=== PATIENT | male | born 1960 | race Asian ===

== ENCOUNTER → 2016-11-05 | Outpatient (CLI) | payer BC ==
[~2016-11-05] MED LIST: ASPI325T39 PO; [UNRECOGNIZED DRUG - REMARK] PO
--- NOTE | 2016-11-05 11:18 | DIAGNOSTIC IMAGING REPORT ---
ULTRASOUND LEFT GROIN NONVASCULAR CLINICAL HISTORY: Left groin pain. COMPARISON STUDY: No priors FINDINGS: Real-time grayscale sonography of the left groin is performed to assess for inguinal hernia. There is no sonographic evidence of left inguinal hernia. No hernia could be elicited by having the patient perform the Valsalva maneuver. No mass lesion or adenopathy is identified. IMPRESSION: There is no sonographic evidence of left inguinal hernia as clinically queried. Electronically signed by: Kosta Rodriguez M.D. 11/05/2016 11:16 AM Dictated Date/Time: 11/05/2016 11:15 AM
== END | disposition home or self-care (01) ==
LOC: C.ULTR 10:51
PROVIDERS: ATTEND Nurse Practitioner
DX: R10.30 Lower abdominal pain, unspecified (principal)

== ENCOUNTER → 2016-12-08 | Outpatient (CLI) | payer BC ==
--- NOTE | 2016-12-08 12:02 | DIAGNOSTIC IMAGING REPORT ---
ABDOMEN COMPLETE (US) CLINICAL HISTORY: 56 years-old Male with NAUSEA,GERD. TECHNIQUE: Multiple real time sonographic images of the abdomen were obtained assessing haney-scale appearance. COMPARISON: Abdominal ultrasound 12/07/2012 FINDINGS: PANCREAS: The pancreas is mostly obscured by bowel gas. LIVER: The pancreatic parenchyma is mildly echogenic and heterogeneous suggesting fatty infiltration. There is no intrahepatic bile duct dilation, focal lesion, or contour nodularity. There is no ascites. GALLBLADDER: Surgically absent. The common bile duct measures 0.6 cm. RIGHT KIDNEY: The right kidney measures 11.1 cm. The parenchymal echotexture and cortical thickness are normal. No nephrolithiasis or hydronephrosis. Previously noted cyst of the right kidney is not definitely seen. LEFT KIDNEY: The left kidney measures 10.7 cm. The parenchymal echotexture and cortical thickness are normal. No nephrolithiasis or hydronephrosis. SPLEEN: The spleen measures 10.2 cm and is normal in echotexture. No focal lesions are identified. VASCULATURE: The imaged aorta and IVC are unremarkable. No aneurysmal dilation is identified. IMPRESSION: 1. No acute sonographic abnormality of the abdomen identified. 2. Prior cholecystectomy. 3. Mildly echogenic and heterogeneous appearance of the liver is again seen suggesting fatty infiltration. These changes were also noted on comparison study 12/07/2012. The above report was generated using voice recognition software. It may contain grammatical, syntax or spelling errors. Electronically signed by: Sandro Dasilva M.D. 12/08/2016 12:00 PM Dictated Date/Time: 12/08/2016 11:56 AM
== END | disposition home or self-care (01) ==
LOC: C.ULTR 11:15
PROVIDERS: ATTEND Internal Medicine Gastroenterology
DX: K21.9 Gastro-esophageal reflux disease without esophagitis (principal); R11.0 Nausea